=== PATIENT | male | born 1995 | race Caucasian/White ===

== ENCOUNTER 2019-12-22 21:16 | Emergency (ER) | payer SELFPAY ==
[~2019-12-22] VITALS: Ht 167.6 cm; Wt 61.4 kg
[2019-12-22] MEDS ORDERED: BACITRACIN 0.9 GM PACKET OINTMENT TP ONE (22:30)
[2019-12-22] MEDS ORDERED: LIDOCAINE/PF 1% 30 ML VIAL INJ ONE (22:30)
[2019-12-22] MEDS ORDERED: PERTUSS(ACELL),DIPH,TET VAC/PF 0.5 ML VIAL IM ONE (22:30)
[2019-12-22 23:00] VITALS: BP 127/71
[2019-12-22] MEDS ORDERED: LIDOCAINE 1% 10 ML VIAL INJ ONE (23:00)
== END 2019-12-22 23:31 | disposition home or self-care (01) ==
LOC: EMS 21:17
DX: S61.411A Laceration without foreign body of right hand, initial encounter (principal); F12.90 Cannabis use, unspecified, uncomplicated; Y35.811A Legal intervention involving manhandling, law enforcement official injured, initial encounter; Y93.89 Activity, other specified; Y92.89 Other specified places as the place of occurrence of the external cause; Y99.8 Other external cause status
CPT/HCPCS: 12002; 90471; 90715; 99283; J3490